=== PATIENT | male | born 1990 | race Caucasian/White ===

== ENCOUNTER 2021-02-17 09:12 | Emergency (ER) | payer OTHER ==
[~2021-02-17] VITALS: Ht 188 cm; Wt 109.1 kg
[2021-02-17 09:27] VITALS: TEMP 97.8
[2021-02-17 09:37] VITALS: BP 151/86; PULSE 96
== END 2021-02-17 09:46 | disposition home or self-care (01) ==
LOC: COL.ER 09:12
DX: L72.8 Other follicular cysts of the skin and subcutaneous tissue (principal)